=== PATIENT | female | born 1950 | race Caucasian/White ===

== ENCOUNTER 2016-04-08 19:56 | Inpatient (IN) | payer MEDICARE, MEDICAID ==
[~2016-04-08] VITALS: Ht 154.9 cm; Wt 80.0 kg
[~2016-04-08 19:56] MED LIST: AMLO-511 PO; ASPI-1061 PO; LEVO75 PO; LORA10TA7 PO; MIRT30 PO; OLAN2.5T3 PO; PARO20TA24 PO; TRAM50TA4 PO
[2016-04-08 22:58] VITALS: BP 118/83
[2016-04-08] MEDS: TraMADol HCL 50 MG TABLET PO PRN (22:58)
[2016-04-09] VITALS (8 sets, daily range): BP systolic 129–150; BP diastolic 64–87
[2016-04-09] MEDS: BENZOCAINE/MENTHOL LOZENGE [8 LOZENGES/PACKET] PO PRN ×3 (00:47→23:37)
[2016-04-09] MEDS: LORazepam 2 MG TABLET PO PRN (02:48)
[2016-04-09] MEDS: ZOLPIDEM TARTRATE 10 MG TABLET PO PRN (02:48)
[2016-04-09] MEDS ORDERED: INFLUENZA VIRUS VACCINE QVS 2016-17 (3YR+)/PF 60 MCG/0.5 ML SYRINGE IM ONE (04:30)
[2016-04-09] MEDS ORDERED: PNEUMOCOCCAL VACCINE POLYVALENT 0.5 ML VIAL [PPSV23] IM ONE (04:30)
[2016-04-09 06:56] LABS: GLUCOSE,POINT OF CARE 112 MG/DL (70-110)
[2016-04-09] MEDS: LEVOTHYROXINE SODIUM 75 MCG TABLET PO SCH (06:57)
[2016-04-09] MEDS: AMOXICILLIN TRIHYDRATE 500 MG CAPSULE PO SCH ×3 (08:00→16:44)
[2016-04-09] MEDS: MetFORMIN HCL 500 MG TABLET PO SCH (08:00)
[2016-04-09] MEDS: AmLODIPine BESYLATE 5 MG TABLET PO SCH (08:02)
[2016-04-09] MEDS ORDERED: PARoxetine HCL 20 MG TABLET PO SCH (09:00)
[2016-04-09] MEDS: TraMADol HCL 50 MG TABLET PO PRN ×2 (10:45→20:47)
[2016-04-09 16:56] LABS: GLUCOSE,POINT OF CARE 120 MG/DL (70-110)
[2016-04-09] MEDS: OLANZapine 10 MG TABLET PO SCH (20:43)
[2016-04-09] MEDS: PARoxetine HCL 20 MG TABLET PO SCH (20:43)
[2016-04-09] MEDS: MIRTAZAPINE 15 MG TABLET PO SCH (20:43)
[2016-04-09] MEDS ORDERED: MIRTAZAPINE 30 MG TABLET PO SCH (21:00)
[2016-04-09] MEDS ORDERED: OLANZapine 10 MG TABLET PO SCH (21:00)
[2016-04-10 02:00] VITALS: BP 145/79
[2016-04-10] MEDS ORDERED: LOPERAMIDE HCL 2 MG CAPSULE PO PRN (02:00)
[2016-04-10] MEDS: ONDANSETRON HCL 4 MG TABLET PO PRN (02:28)
[2016-04-10 05:26] LABS: GLUCOSE,POINT OF CARE 144 MG/DL (70-110)
[2016-04-10] MEDS: MetFORMIN HCL 500 MG TABLET PO SCH (06:50)
[2016-04-10] MEDS: LEVOTHYROXINE SODIUM 75 MCG TABLET PO SCH (06:50)
[2016-04-10 08:00] VITALS: BP 150/76
[2016-04-10] MEDS: LORazepam 2 MG TABLET PO PRN (08:53)
[2016-04-10] MEDS: AMOXICILLIN TRIHYDRATE 500 MG CAPSULE PO SCH ×3 (08:53→16:04)
[2016-04-10] MEDS: AmLODIPine BESYLATE 5 MG TABLET PO SCH (09:40)
[2016-04-10] MEDS: TraMADol HCL 50 MG TABLET PO PRN (12:57)
[2016-04-10 16:43] VITALS: BP 131/84
[2016-04-10 16:45] LABS: GLUCOSE,POINT OF CARE 130 MG/DL (70-110)
[2016-04-10] MEDS: OLANZapine 10 MG TABLET PO SCH (20:50)
[2016-04-10] MEDS: PARoxetine HCL 20 MG TABLET PO SCH (20:50)
[2016-04-10] MEDS: MIRTAZAPINE 15 MG TABLET PO SCH ×2 (20:50→20:53)
[2016-04-11 05:26] LABS: GLUCOSE,POINT OF CARE 118 MG/DL (70-110)
[2016-04-11] MEDS: LEVOTHYROXINE SODIUM 75 MCG TABLET PO SCH (06:43)
[2016-04-11] MEDS: MetFORMIN HCL 500 MG TABLET PO SCH (06:43)
[2016-04-11 08:10] VITALS: BP 157/93
[2016-04-11] MEDS: LORazepam 2 MG TABLET PO PRN ×2 (09:11→16:34)
[2016-04-11] MEDS: AMOXICILLIN TRIHYDRATE 500 MG CAPSULE PO SCH ×3 (09:12→16:34)
[2016-04-11] MEDS: AmLODIPine BESYLATE 5 MG TABLET PO SCH (09:12)
[2016-04-11] MEDS: LISINOPRIL 5 MG TABLET PO SCH (16:34)
[2016-04-11] MEDS: OLANZapine 7.5 MG TABLET PO SCH (20:52)
[2016-04-12 06:31] LABS: GLUCOSE,POINT OF CARE 94 MG/DL (70-110)
[2016-04-12 06:39] LABS: BASOPHILS # (AUTO) 0.03 K/uL (0.00-0.20); BASOPHILS % (AUTO) 0.3 % (0.0-2.0); EOSINOPHILS # (AUTO) 0.38 K/uL (0.00-0.70); EOSINOPHILS % (AUTO) 4.32 % (1.0-6.0); HEMATOCRIT 27.4 % (36-46); HEMOGLOBIN 9.2 g/dL (12.0-16.0); LYMPHOCYTES # (AUTO) 1.6 K/uL (1.0-4.8); LYMPHOCYTES % (AUTO) 18.3 % (22.0-44.0); MEAN CORPUSCULAR HGB CONC 33.7 G/dL (31.0-37.0); MEAN CORPUSCULAR VOLUME 89 fL (80-100); MONOCYTES # (AUTO) 0.8 K/uL (0.1-1.0); MONOCYTES % (AUTO) 8.8 % (2.0-9.0); NEUTROPHILS % (AUTO) 68.2 % (40.0-70.0); PLATELET COUNT (AUTO) 339 K/uL (150-450); RED BLOOD CELL COUNT(AUTO) 3.09 MIL/uL (4.00-5.20); RED CELL DISTRIBUTION WIDTH 14.9 % (11.5-14.5); WHITE BLOOD COUNT (AUTO) 8.8 K/uL (4.5-11.0)
[2016-04-12] MEDS: LEVOTHYROXINE SODIUM 75 MCG TABLET PO SCH (06:50)
[2016-04-12 07:37] LABS: ALANINE AMINOTRANSFERASE 69 U/L (12-78); ALBUMIN 2.7 g/dL (3.4-5.0); ANION GAP 7 mmol/L (8-16); ASPARTATE AMINOTRANSFERASE 39 U/L (15-37); BILIRUBIN,TOTAL 0.4 mg/dL (0.1-1.0); CALCIUM, TOTAL 8.1 mg/dL (8.8-10.5); CARBON DIOXIDE 27 mmol/L (22-29); CHLORIDE 110 mmol/L (98-107); CHOL/HDL RATIO 3.9 (3.9-5.7); CREATINE KINASE MB 1.8 ng/mL (0-5); CREATINE KINASE, TOTAL 157 U/L (26-192); CREATININE 0.67 mg/dL (0.60-1.30); GLOMERULAR FILTR. RATE CALC > 60 mL/min (>60); POTASSIUM 3.5 mmol/L (3.5-5.1); SODIUM SERUM 144 mmol/L (136-145); THYROID STIMULATING HORMONE 0.51 uIU/mL (0.36-3.74); TOTAL PROTEIN, SERUM 5.9 g/dL (6.4-8.2); UREA NITROGEN, BLOOD 8 mg/dL (7-18)
[2016-04-12 08:00] VITALS: BP 126/78
[2016-04-12] MEDS: AMOXICILLIN TRIHYDRATE 500 MG CAPSULE PO SCH ×3 (08:27→17:09)
[2016-04-12] MEDS: MetFORMIN HCL 500 MG TABLET PO SCH (08:27)
[2016-04-12] MEDS: AmLODIPine BESYLATE 5 MG TABLET PO SCH (08:27)
[2016-04-12] MEDS: LORazepam 2 MG TABLET PO PRN ×2 (08:28→15:09)
[2016-04-12] MEDS: OLANZapine 5 MG RAPDIS TABLET PO PRN (08:28)
[2016-04-12] MEDS: LISINOPRIL 5 MG TABLET PO SCH (08:28)
[2016-04-12 09:24] LABS: VITAMIN B12 LEVEL 598 pg/mL (211-911)
[2016-04-12] MEDS: TraMADol HCL 50 MG TABLET PO PRN (15:09)
[2016-04-12] MEDS: OLANZapine 7.5 MG TABLET PO SCH (20:37)
[2016-04-13] MEDS: ZOLPIDEM TARTRATE 10 MG TABLET PO PRN (01:22)
[2016-04-13] MEDS: LORazepam 2 MG TABLET PO PRN ×2 (01:22→23:25)
[2016-04-13 06:36] LABS: GLUCOSE,POINT OF CARE 108 MG/DL (70-110)
[2016-04-13] MEDS: LEVOTHYROXINE SODIUM 75 MCG TABLET PO SCH (06:53)
[2016-04-13] MEDS: AMOXICILLIN TRIHYDRATE 500 MG CAPSULE PO SCH ×2 (09:40→13:25)
[2016-04-13] MEDS: AmLODIPine BESYLATE 5 MG TABLET PO SCH (09:40)
[2016-04-13] MEDS: LISINOPRIL 5 MG TABLET PO SCH (09:40)
[2016-04-13] MEDS: MetFORMIN HCL 500 MG TABLET PO SCH (09:41)
[2016-04-13 11:20] LABS: HEPATITIS Bs ANTIGEN SCREEN P Negative (Negative); HEPATITIS C AB SCREEN <0.1 s/co ratio (0.0-0.9)
[2016-04-13] MEDS: TraMADol HCL 50 MG TABLET PO PRN (13:25)
[2016-04-13 13:29] VITALS: BP 144/80
[2016-04-13 16:00] VITALS: BP 138/74
[2016-04-13 17:31] LABS: GLUCOSE COMMENT 1 FASTING; GLUCOSE,POINT OF CARE 123 MG/DL (70-110)
[2016-04-13] MEDS: SULFAMETHOX/TRIMETH DS 800-160 MG/TABLET PO SCH (17:34)
[2016-04-13] MEDS: CEPHALEXIN MONOHYDRATE 500 MG CAPSULE PO SCH ×2 (17:35→20:50)
[2016-04-13] MEDS: OLANZapine 7.5 MG TABLET PO SCH (20:50)
[2016-04-14] MEDS: ZOLPIDEM TARTRATE 10 MG TABLET PO PRN (00:34)
[2016-04-14] MEDS: TraMADol HCL 50 MG TABLET PO PRN (00:34)
[2016-04-14 00:35] VITALS: BP 145/67
[2016-04-14 06:31] LABS: GLUCOSE,POINT OF CARE 125 MG/DL (70-110)
[2016-04-14] MEDS: MetFORMIN HCL 500 MG TABLET PO SCH (06:43)
[2016-04-14] MEDS: LEVOTHYROXINE SODIUM 75 MCG TABLET PO SCH (06:43)
[2016-04-14 08:25] VITALS: BP 130/73
[2016-04-14] MEDS: CEPHALEXIN MONOHYDRATE 500 MG CAPSULE PO SCH ×4 (08:30→20:31)
[2016-04-14] MEDS: AmLODIPine BESYLATE 5 MG TABLET PO SCH (08:30)
[2016-04-14] MEDS: SULFAMETHOX/TRIMETH DS 800-160 MG/TABLET PO SCH ×2 (08:30→16:14)
[2016-04-14] MEDS: LISINOPRIL 5 MG TABLET PO SCH (08:31)
[2016-04-14] MEDS: BENZOCAINE/MENTHOL LOZENGE [8 LOZENGES/PACKET] PO PRN (09:04)
[2016-04-14 16:12] LABS: GLUCOSE,POINT OF CARE 106 MG/DL (70-110)
[2016-04-14] MEDS: LORazepam 2 MG TABLET PO PRN ×2 (16:17→23:59)
[2016-04-14 16:22] VITALS: BP 146/64
[2016-04-14] MEDS: OLANZapine 7.5 MG TABLET PO SCH (20:32)
[2016-04-15] MEDS: ONDANSETRON HCL 4 MG TABLET PO PRN (00:48)
[2016-04-15 01:46] VITALS: BP 146/78
[2016-04-15 02:07] LABS: APPEARANCE,URINE CLEAR (CLEAR); GLUCOSE, URINE (UA) NEGATIVE (NEGATIVE); KETONES,URINE NEGATIVE (NEGATIVE); LEUKOCYTE ESTERASE ,URINE NEGATIVE (NEGATIVE); OCCULT BLOOD,URINE NEGATIVE (NEGATIVE); PH,URINE 5.5 (5.0-8.0); PROTEIN,URINE NEGATIVE (NEGATIVE)
[2016-04-15 02:09] LABS: ADD UA MICROSCOPIC NO
[2016-04-15] MEDS: TraMADol HCL 50 MG TABLET PO PRN ×2 (05:00→13:22)
[2016-04-15 05:01] VITALS: BP 135/79
[2016-04-15 06:36] LABS: GLUCOSE,POINT OF CARE 122 MG/DL (70-110)
[2016-04-15] MEDS: LEVOTHYROXINE SODIUM 75 MCG TABLET PO SCH (06:42)
[2016-04-15] MEDS: MetFORMIN HCL 500 MG TABLET PO SCH (06:42)
[2016-04-15 08:00] VITALS: BP 134/76
[2016-04-15] MEDS: CEPHALEXIN MONOHYDRATE 500 MG CAPSULE PO SCH ×4 (08:42→21:00)
[2016-04-15] MEDS: SULFAMETHOX/TRIMETH DS 800-160 MG/TABLET PO SCH ×2 (08:42→16:20)
[2016-04-15] MEDS: AmLODIPine BESYLATE 5 MG TABLET PO SCH (08:42)
[2016-04-15] MEDS: LISINOPRIL 5 MG TABLET PO SCH (08:43)
[2016-04-15] MEDS ORDERED: DEXTROSE 50%-WATER 25 GM/50 ML SYRINGE IVP PRN (15:30)
[2016-04-15 16:32] VITALS: BP 150/80
[2016-04-15 16:41] LABS: GLUCOSE,POINT OF CARE 102 MG/DL (70-110)
[2016-04-15] MEDS: OLANZapine 7.5 MG TABLET PO SCH (21:00)
[2016-04-15] MEDS: DIVALPROEX SODIUM 500 MG ER TABLET PO SCH (21:00)
[2016-04-15] MEDS: LORazepam 2 MG TABLET PO PRN (21:38)
[2016-04-16 00:38] VITALS: BP 140/82
[2016-04-16] MEDS: TraMADol HCL 50 MG TABLET PO PRN ×2 (00:38→08:36)
[2016-04-16 06:01] LABS: GLUCOSE,POINT OF CARE 103 MG/DL (70-110)
[2016-04-16] MEDS: MetFORMIN HCL 500 MG TABLET PO SCH (06:40)
[2016-04-16] MEDS: LEVOTHYROXINE SODIUM 75 MCG TABLET PO SCH (06:40)
[2016-04-16 08:00] VITALS: BP 138/74
[2016-04-16] MEDS: AmLODIPine BESYLATE 5 MG TABLET PO SCH (08:01)
[2016-04-16] MEDS: CEPHALEXIN MONOHYDRATE 500 MG CAPSULE PO SCH ×4 (08:01→20:37)
[2016-04-16] MEDS: SULFAMETHOX/TRIMETH DS 800-160 MG/TABLET PO SCH ×2 (08:01→16:26)
[2016-04-16] MEDS: LORazepam 2 MG TABLET PO PRN ×2 (08:01→20:38)
[2016-04-16] MEDS: LISINOPRIL 5 MG TABLET PO SCH (08:37)
[2016-04-16 16:43] VITALS: BP 139/75
[2016-04-16] MEDS: DIVALPROEX SODIUM 500 MG ER TABLET PO SCH (20:36)
[2016-04-16] MEDS: OLANZapine 7.5 MG TABLET PO SCH (20:37)
[2016-04-16 20:39] VITALS: BP 137/68
[2016-04-17] MEDS: LEVOTHYROXINE SODIUM 75 MCG TABLET PO SCH (06:41)
[2016-04-17] MEDS: MetFORMIN HCL 500 MG TABLET PO SCH (06:41)
[2016-04-17 06:56] LABS: GLUCOSE,POINT OF CARE 101 MG/DL (70-110)
[2016-04-17] MEDS: AmLODIPine BESYLATE 5 MG TABLET PO SCH (09:35)
[2016-04-17] MEDS: CEPHALEXIN MONOHYDRATE 500 MG CAPSULE PO SCH ×4 (09:35→21:36)
[2016-04-17] MEDS: SULFAMETHOX/TRIMETH DS 800-160 MG/TABLET PO SCH ×2 (09:36→17:17)
[2016-04-17] MEDS: LISINOPRIL 5 MG TABLET PO SCH (09:37)
[2016-04-17 16:30] VITALS: BP 114/63
[2016-04-17 17:26] LABS: GLUCOSE,POINT OF CARE 88 MG/DL (70-110)
[2016-04-17] MEDS: DIVALPROEX SODIUM 500 MG ER TABLET PO SCH (21:00)
[2016-04-17] MEDS: OLANZapine 7.5 MG TABLET PO SCH (21:36)
[2016-04-17] MEDS: LORazepam 2 MG TABLET PO PRN (21:45)
[2016-04-18] MEDS: TraMADol HCL 50 MG TABLET PO PRN (03:46)
[2016-04-18 05:31] LABS: GLUCOSE,POINT OF CARE 102 MG/DL (70-110)
[2016-04-18 06:26] LABS: BASOPHILS # (AUTO) 0.03 K/uL (0.00-0.20); BASOPHILS % (AUTO) 0.4 % (0.0-2.0); EOSINOPHILS # (AUTO) 0.27 K/uL (0.00-0.70); EOSINOPHILS % (AUTO) 3.79 % (1.0-6.0); HEMATOCRIT 32.2 % (36-46); HEMOGLOBIN 10.6 g/dL (12.0-16.0); LYMPHOCYTES # (AUTO) 1.6 K/uL (1.0-4.8); LYMPHOCYTES % (AUTO) 22.9 % (22.0-44.0); MEAN CORPUSCULAR HEMOGLOBIN 29.4 pg (26.0-34.0); MEAN CORPUSCULAR HGB CONC 32.8 G/dL (31.0-37.0); MEAN CORPUSCULAR VOLUME 90 fL (80-100); MONOCYTES # (AUTO) 0.7 K/uL (0.1-1.0); MONOCYTES % (AUTO) 10.2 % (2.0-9.0); NEUTROPHILS # (AUTO) 4.5 K/uL (1.8-7.7); NEUTROPHILS % (AUTO) 62.8 % (40.0-70.0); PLATELET COUNT (AUTO) 362 K/uL (150-450); RED BLOOD CELL COUNT(AUTO) 3.59 MIL/uL (4.00-5.20); WHITE BLOOD COUNT (AUTO) 7.1 K/uL (4.5-11.0)
[2016-04-18] MEDS: LEVOTHYROXINE SODIUM 75 MCG TABLET PO SCH (06:33)
[2016-04-18] MEDS: MetFORMIN HCL 500 MG TABLET PO SCH (06:33)
[2016-04-18 06:59] LABS: ANION GAP 10 mmol/L (8-16); CALCIUM, TOTAL 8.6 mg/dL (8.8-10.5); CARBON DIOXIDE 24 mmol/L (22-29); CHLORIDE 106 mmol/L (98-107); CREATINE KINASE, TOTAL 281 U/L (26-192); CREATININE 0.71 mg/dL (0.60-1.30); GLOMERULAR FILTR. RATE CALC > 60 mL/min (>60); POTASSIUM 4.1 mmol/L (3.5-5.1); SODIUM SERUM 140 mmol/L (136-145); UREA NITROGEN, BLOOD 6 mg/dL (7-18)
[2016-04-18] MEDS: CEPHALEXIN MONOHYDRATE 500 MG CAPSULE PO SCH ×2 (08:01→12:12)
[2016-04-18] MEDS: AmLODIPine BESYLATE 5 MG TABLET PO SCH (08:01)
[2016-04-18] MEDS: LISINOPRIL 5 MG TABLET PO SCH (08:01)
[2016-04-18] MEDS: SULFAMETHOX/TRIMETH DS 800-160 MG/TABLET PO SCH (08:01)
[2016-04-18 08:02] VITALS: BP 118/78
[2016-04-18 16:33] VITALS: BP 119/71
[2016-04-18 17:06] LABS: GLUCOSE,POINT OF CARE 110 MG/DL (70-110)
[2016-04-18] MEDS: LORazepam 2 MG TABLET PO PRN (22:25)
[2016-04-18] MEDS: OLANZapine 7.5 MG TABLET PO SCH (22:26)
[2016-04-19] MEDS: TraMADol HCL 50 MG TABLET PO PRN (00:38)
[2016-04-19 05:21] LABS: GLUCOSE,POINT OF CARE 97 MG/DL (70-110)
[2016-04-19 06:30] LABS: BASOPHILS % (AUTO) 0.2 % (0.0-2.0); EOSINOPHILS % (AUTO) 4.7 % (1.0-6.0); HEMATOCRIT 32.2 % (36-46); HEMOGLOBIN 10.5 g/dL (12.0-16.0); LYMPHOCYTES # (AUTO) 2.3 K/uL (1.0-4.8); LYMPHOCYTES % (AUTO) 30.4 % (22.0-44.0); MEAN CORPUSCULAR HEMOGLOBIN 29.2 pg (26.0-34.0); MEAN CORPUSCULAR HGB CONC 32.7 G/dL (31.0-37.0); MEAN CORPUSCULAR VOLUME 89 fL (80-100); MONOCYTES # (AUTO) 0.9 K/uL (0.1-1.0); MONOCYTES % (AUTO) 11.1 % (2.0-9.0); NEUTROPHILS # (AUTO) 4.1 K/uL (1.8-7.7); NEUTROPHILS % (AUTO) 53.6 % (40.0-70.0); PLATELET COUNT (AUTO) 355 K/uL (150-450); RED CELL DISTRIBUTION WIDTH 15.4 % (11.5-14.5); WHITE BLOOD COUNT (AUTO) 7.6 K/uL (4.5-11.0)
[2016-04-19] MEDS: LEVOTHYROXINE SODIUM 75 MCG TABLET PO SCH (06:35)
[2016-04-19] MEDS: MetFORMIN HCL 500 MG TABLET PO SCH (06:35)
[2016-04-19 06:49] LABS: ALANINE AMINOTRANSFERASE 57 U/L (12-78); ALBUMIN 3.2 g/dL (3.4-5.0); ANION GAP 8 mmol/L (8-16); ASPARTATE AMINOTRANSFERASE 43 U/L (15-37); BILIRUBIN,TOTAL 0.4 mg/dL (0.1-1.0); CALCIUM, TOTAL 8.9 mg/dL (8.8-10.5); CARBON DIOXIDE 25 mmol/L (22-29); CHLORIDE 106 mmol/L (98-107); CREATININE 0.71 mg/dL (0.60-1.30); GLOMERULAR FILTR. RATE CALC > 60 mL/min (>60); POTASSIUM 4.1 mmol/L (3.5-5.1); SODIUM SERUM 139 mmol/L (136-145); TOTAL PROTEIN, SERUM 6.8 g/dL (6.4-8.2); UREA NITROGEN, BLOOD 5 mg/dL (7-18)
[2016-04-19 07:38] LABS: B-TYPE NATRIURETIC PEPTIDE 26 pg/mL (0-100)
[2016-04-19] MEDS: AmLODIPine BESYLATE 5 MG TABLET PO SCH (09:09)
[2016-04-19] MEDS: LISINOPRIL 5 MG TABLET PO SCH (09:09)
[2016-04-19] MEDS: FUROSEMIDE 20 MG TABLET PO SCH (09:09)
[2016-04-19 10:19] VITALS: BP 119/74
[2016-04-19 16:00] VITALS: BP 133/72
[2016-04-19] MEDS: LORazepam 2 MG TABLET PO PRN (21:01)
[2016-04-19] MEDS: OLANZapine 7.5 MG TABLET PO SCH (21:45)
[2016-04-20 05:51] LABS: GLUCOSE,POINT OF CARE 104 MG/DL (70-110)
[2016-04-20] MEDS: MetFORMIN HCL 500 MG TABLET PO SCH (06:41)
[2016-04-20] MEDS: LEVOTHYROXINE SODIUM 75 MCG TABLET PO SCH (06:42)
[2016-04-20] MEDS: LISINOPRIL 5 MG TABLET PO SCH (08:50)
[2016-04-20] MEDS: FUROSEMIDE 20 MG TABLET PO SCH (08:51)
[2016-04-20] MEDS: BACITRACIN 28.4 GM OINTMENT TP SCH (08:52)
[2016-04-20] MEDS: AmLODIPine BESYLATE 5 MG TABLET PO SCH (08:52)
[2016-04-20 11:18] VITALS: BP 127/79
[2016-04-20] MEDS ORDERED: TUBERCULIN, PURIFIED PROTEIN DERIVATIVE 5 TU/0.1 ML SYG ID ONE (15:15)
[2016-04-20 16:30] VITALS: BP 117/70
[2016-04-20 17:30] LABS: GLUCOSE COMMENT 1 FASTING; GLUCOSE,POINT OF CARE 114 MG/DL (70-110)
[2016-04-20] MEDS: LORazepam 2 MG TABLET PO PRN (20:42)
[2016-04-20] MEDS: OLANZapine 7.5 MG TABLET PO SCH (21:40)
[2016-04-21] MEDS: ZOLPIDEM TARTRATE 10 MG TABLET PO PRN ×2 (00:57→23:47)
[2016-04-21 05:31] LABS: GLUCOSE,POINT OF CARE 89 MG/DL (70-110)
[2016-04-21] MEDS: LEVOTHYROXINE SODIUM 75 MCG TABLET PO SCH (07:03)
[2016-04-21] MEDS: MetFORMIN HCL 500 MG TABLET PO SCH (07:03)
[2016-04-21] MEDS: INSULIN ASPART 100 UNITS/ML SQ PRN (07:16)
[2016-04-21 08:00] VITALS: BP 137/75
[2016-04-21] MEDS: TraMADol HCL 50 MG TABLET PO PRN (08:01)
[2016-04-21] MEDS: AmLODIPine BESYLATE 5 MG TABLET PO SCH (08:01)
[2016-04-21] MEDS: LISINOPRIL 5 MG TABLET PO SCH (08:01)
[2016-04-21] MEDS: FUROSEMIDE 20 MG TABLET PO SCH (08:01)
[2016-04-21] MEDS: LORazepam 2 MG TABLET PO PRN (08:01)
[2016-04-21] MEDS: BACITRACIN 28.4 GM OINTMENT TP SCH (13:17)
[2016-04-21 16:30] VITALS: BP 128/70
[2016-04-21 18:21] LABS: GLUCOSE COMMENT 1 FASTING; GLUCOSE,POINT OF CARE 104 MG/DL (70-110)
[2016-04-21] MEDS: OLANZapine 7.5 MG TABLET PO SCH (21:29)
[2016-04-22] MEDS ORDERED: LIDOCAINE HCL/PF 2% 5 ML VIAL IM ONE (01:03)
[2016-04-22] MEDS ORDERED: PROPOFOL 1% 20 ML VIAL IVP ONE (01:03)
[2016-04-22 06:06] LABS: GLUCOSE,POINT OF CARE 102 MG/DL (70-110)
[2016-04-22] MEDS: MetFORMIN HCL 500 MG TABLET PO SCH (06:52)
[2016-04-22] MEDS: LEVOTHYROXINE SODIUM 75 MCG TABLET PO SCH (06:52)
[2016-04-22 08:07] VITALS: BP 143/82
[2016-04-22] MEDS ORDERED: RINGERS SOLUTION,LACTATED 1,000 ML IV ONE ×2 (09:00→09:05)
[2016-04-22 09:41] LABS: GLUCOSE,POINT OF CARE 156 MG/DL (70-110)
[2016-04-22] MEDS ORDERED: BACITRACIN 28.4 GM OINTMENT TP ONE (10:16)
[2016-04-22] MEDS ORDERED: TraMADol HCL 50 MG TABLET PO PRN (10:30)
[2016-04-22] MEDS ORDERED: MEPERIDINE-PF 25 MG/ML SYRINGE IVP PRN (10:45)
[2016-04-22] MEDS ORDERED: FentaNYL CITRATE-PF 100 MCG/2 ML VIAL IVP PRN (10:45)
[2016-04-22] MEDS ORDERED: HYDROmorphone 2 MG/ML SYRINGE IVP PRN (10:45)
[2016-04-22] MEDS: LISINOPRIL 5 MG TABLET PO SCH (12:45)
[2016-04-22] MEDS: AmLODIPine BESYLATE 5 MG TABLET PO SCH (12:46)
[2016-04-22] MEDS: FUROSEMIDE 20 MG TABLET PO SCH (12:46)
[2016-04-22] MEDS: BACITRACIN 28.4 GM OINTMENT TP SCH (12:46)
[2016-04-22 16:49] VITALS: BP 141/82
[2016-04-22 17:41] LABS: GLUCOSE COMMENT 1 FASTING; GLUCOSE,POINT OF CARE 110 MG/DL (70-110)
[2016-04-22] MEDS: OXYGEN THERAPY IH SCH (20:00)
[2016-04-22] MEDS: LORazepam 2 MG TABLET PO PRN (20:31)
[2016-04-22] MEDS: OLANZapine 7.5 MG TABLET PO SCH (21:24)
[2016-04-22] MEDS ORDERED: FentaNYL CITRATE-PF 100 MCG/2 ML VIAL IVP ONE (23:45)
[2016-04-22] MEDS ORDERED: MIDAZOLAM HCL 2 MG/2 ML VIAL IVP ONE (23:45)
[2016-04-23 00:02] VITALS: BP 128/73
[2016-04-23 05:31] LABS: GLUCOSE,POINT OF CARE 111 MG/DL (70-110)
[2016-04-23] MEDS: LEVOTHYROXINE SODIUM 75 MCG TABLET PO SCH (06:33)
[2016-04-23] MEDS: MetFORMIN HCL 500 MG TABLET PO SCH (06:33)
[2016-04-23] MEDS ORDERED: LEVOTHYROXINE SODIUM 75 MCG TABLET PO SCH (07:00)
[2016-04-23] MEDS: ASPIRIN 81 MG EC TABLET PO SCH (07:47)
[2016-04-23] MEDS: OLANZapine 5 MG RAPDIS TABLET PO PRN (07:47)
[2016-04-23] MEDS: LORATADINE 10 MG TABLET PO SCH (07:47)
[2016-04-23] MEDS: LORazepam 2 MG TABLET PO PRN ×2 (07:47→21:35)
[2016-04-23] MEDS: LISINOPRIL 5 MG TABLET PO SCH (07:47)
[2016-04-23] MEDS: FUROSEMIDE 20 MG TABLET PO SCH (07:47)
[2016-04-23] MEDS: AmLODIPine BESYLATE 5 MG TABLET PO SCH (07:47)
[2016-04-23] MEDS: BACITRACIN 28.4 GM OINTMENT TP SCH (07:48)
[2016-04-23] MEDS: OXYGEN THERAPY IH SCH ×2 (08:00→20:00)
[2016-04-23] MEDS ORDERED: AmLODIPine BESYLATE 5 MG TABLET PO SCH (09:00)
[2016-04-23 09:06] VITALS: BP 140/80
[2016-04-23 16:00] VITALS: BP 125/82
[2016-04-23 16:52] LABS: GLUCOSE,POINT OF CARE 137 MG/DL (70-110)
[2016-04-23] MEDS: OLANZapine 7.5 MG TABLET PO SCH (21:35)
[2016-04-24 06:13] LABS: GLUCOSE,POINT OF CARE 109 MG/DL (70-110)
[2016-04-24] MEDS: MetFORMIN HCL 500 MG TABLET PO SCH (06:31)
[2016-04-24] MEDS: LEVOTHYROXINE SODIUM 75 MCG TABLET PO SCH (06:31)
[2016-04-24] MEDS: OXYGEN THERAPY IH SCH (08:00)
[2016-04-24] MEDS: FUROSEMIDE 20 MG TABLET PO SCH (09:54)
[2016-04-24] MEDS: LISINOPRIL 5 MG TABLET PO SCH (09:54)
[2016-04-24] MEDS: LORATADINE 10 MG TABLET PO SCH (09:54)
[2016-04-24] MEDS: AmLODIPine BESYLATE 5 MG TABLET PO SCH (09:54)
[2016-04-24] MEDS: ASPIRIN 81 MG EC TABLET PO SCH (09:54)
[2016-04-24] MEDS: BACITRACIN 28.4 GM OINTMENT TP SCH (09:55)
[2016-04-24 16:29] VITALS: BP 127/82
[2016-04-24 17:26] LABS: GLUCOSE,POINT OF CARE 123 MG/DL (70-110)
[2016-04-24] MEDS: LORazepam 2 MG TABLET PO PRN (19:02)
[2016-04-24] MEDS: OLANZapine 7.5 MG TABLET PO SCH (20:37)
[2016-04-25] MEDS: TraMADol HCL 50 MG TABLET PO PRN ×3 (00:01→23:44)
[2016-04-25 00:02] VITALS: BP 130/72
[2016-04-25 05:04] VITALS: BP 133/71
[2016-04-25 05:57] LABS: GLUCOSE,POINT OF CARE 96 MG/DL (70-110)
[2016-04-25] MEDS: MetFORMIN HCL 500 MG TABLET PO SCH (06:44)
[2016-04-25] MEDS: LEVOTHYROXINE SODIUM 75 MCG TABLET PO SCH (06:44)
[2016-04-25] MEDS: OXYGEN THERAPY IH SCH ×2 (08:00→20:00)
[2016-04-25] MEDS: AmLODIPine BESYLATE 5 MG TABLET PO SCH (08:09)
[2016-04-25] MEDS: FUROSEMIDE 20 MG TABLET PO SCH (08:09)
[2016-04-25] MEDS: ASPIRIN 81 MG EC TABLET PO SCH (08:09)
[2016-04-25] MEDS: LORATADINE 10 MG TABLET PO SCH (08:10)
[2016-04-25] MEDS: LISINOPRIL 5 MG TABLET PO SCH (08:10)
[2016-04-25 08:13] VITALS: BP 128/78
[2016-04-25] MEDS: LORazepam 2 MG TABLET PO PRN (08:42)
[2016-04-25 16:52] VITALS: BP 127/76
[2016-04-25 18:01] LABS: GLUCOSE COMMENT 1 FASTING; GLUCOSE,POINT OF CARE 111 MG/DL (70-110)
[2016-04-25] MEDS: OLANZapine 7.5 MG TABLET PO SCH (20:42)
[2016-04-25 23:40] VITALS: BP 132/72
[2016-04-25] MEDS: ZOLPIDEM TARTRATE 10 MG TABLET PO PRN (23:44)
[2016-04-26 06:31] LABS: GLUCOSE,POINT OF CARE 106 MG/DL (70-110)
[2016-04-26] MEDS: LEVOTHYROXINE SODIUM 75 MCG TABLET PO SCH (07:00)
[2016-04-26] MEDS: MetFORMIN HCL 500 MG TABLET PO SCH (07:00)
[2016-04-26] MEDS: INSULIN ASPART 100 UNITS/ML SQ PRN (07:01)
[2016-04-26] MEDS: FUROSEMIDE 20 MG TABLET PO SCH (07:54)
[2016-04-26] MEDS: OXYGEN THERAPY IH SCH ×2 (07:54→20:00)
[2016-04-26] MEDS: LORATADINE 10 MG TABLET PO SCH (07:54)
[2016-04-26] MEDS: ASPIRIN 81 MG EC TABLET PO SCH (07:54)
[2016-04-26] MEDS: LISINOPRIL 5 MG TABLET PO SCH (07:54)
[2016-04-26] MEDS: AmLODIPine BESYLATE 5 MG TABLET PO SCH (07:54)
[2016-04-26 08:10] VITALS: BP 134/76
[2016-04-26 16:30] VITALS: BP 137/68
[2016-04-26] MEDS: LORazepam 2 MG TABLET PO PRN ×2 (17:12→22:40)
[2016-04-26] MEDS: OLANZapine 7.5 MG TABLET PO SCH (21:45)
[2016-04-26 21:54] VITALS: BP 126/67
[2016-04-26] MEDS: TraMADol HCL 50 MG TABLET PO PRN (21:56)
[2016-04-27 00:24] VITALS: BP 114/57
[2016-04-27 05:31] LABS: GLUCOSE,POINT OF CARE 117 MG/DL (70-110)
[2016-04-27] MEDS: MetFORMIN HCL 500 MG TABLET PO SCH (06:34)
[2016-04-27] MEDS: LEVOTHYROXINE SODIUM 75 MCG TABLET PO SCH (06:34)
[2016-04-27] MEDS: OXYGEN THERAPY IH SCH ×2 (08:00→20:00)
[2016-04-27] MEDS: LORATADINE 10 MG TABLET PO SCH (09:00)
[2016-04-27] MEDS: AmLODIPine BESYLATE 5 MG TABLET PO SCH (09:39)
[2016-04-27] MEDS: FUROSEMIDE 20 MG TABLET PO SCH (09:39)
[2016-04-27] MEDS: LISINOPRIL 5 MG TABLET PO SCH (09:39)
[2016-04-27] MEDS: ASPIRIN 81 MG EC TABLET PO SCH (09:58)
[2016-04-27 10:52] VITALS: BP 126/80
[2016-04-27] MEDS: OLANZapine 7.5 MG TABLET PO SCH (20:22)
[2016-04-27] MEDS: LORazepam 2 MG TABLET PO PRN (20:22)
[2016-04-27] MEDS ORDERED: OLAN7.5T2 PO (21:22)
[2016-04-27] MEDS ORDERED: FURO20 PO (21:24)
[2016-04-27] MEDS ORDERED: LISI-660 PO (21:24)
[2016-04-27] MEDS ORDERED: METF500T4 PO (21:25)
[2016-04-27 21:35] VITALS: BP 124/79
[2016-04-27 21:46] LABS: GLUCOSE,POINT OF CARE 121 MG/DL (70-110)
[2016-04-27] MEDS: TraMADol HCL 50 MG TABLET PO PRN (22:03)
[2016-04-27 22:04] VITALS: BP 134/78
[2016-04-28 00:50] VITALS: BP 126/66
[2016-04-28 05:26] LABS: GLUCOSE,POINT OF CARE 98 MG/DL (70-110)
[2016-04-28] MEDS: MetFORMIN HCL 500 MG TABLET PO SCH (06:36)
[2016-04-28] MEDS: LEVOTHYROXINE SODIUM 75 MCG TABLET PO SCH (06:36)
[2016-04-28] MEDS: AmLODIPine BESYLATE 5 MG TABLET PO SCH (07:46)
[2016-04-28] MEDS: FUROSEMIDE 20 MG TABLET PO SCH (07:46)
[2016-04-28] MEDS: ASPIRIN 81 MG EC TABLET PO SCH (07:46)
[2016-04-28] MEDS: LORATADINE 10 MG TABLET PO SCH (07:46)
[2016-04-28] MEDS: LISINOPRIL 5 MG TABLET PO SCH (07:47)
[2016-04-28 08:04] VITALS: BP 126/73
== END 2016-04-28 09:50 | disposition home or self-care (01) | DRG 885 ==
LOC: 3EC 21:15 → 3EI 04-09 18:40 → 3EC 04-11 21:30 → 3EI 04-26 08:41
PROC: 8E09XY8 Suture Removal from Head and Neck Region (ICD-10-PCS; principal; 2016-04-22 10:10)
DX: F31.5 Bipolar disorder, current episode depressed, severe, with psychotic features (principal); L03.221 Cellulitis of neck; F17.210 Nicotine dependence, cigarettes, uncomplicated; I10 Essential (primary) hypertension; E11.9 Type 2 diabetes mellitus without complications; E03.9 Hypothyroidism, unspecified; H18.419 Arcus senilis, unspecified eye; D64.9 Anemia, unspecified; J30.9 Allergic rhinitis, unspecified; E55.9 Vitamin D deficiency, unspecified; E87.8 Other disorders of electrolyte and fluid balance, not elsewhere classified; K29.70 Gastritis, unspecified, without bleeding; Z85.43 Personal history of malignant neoplasm of ovary; Z90.49 Acquired absence of other specified parts of digestive tract; Z98.890 Other specified postprocedural states; Z90.710 Acquired absence of both cervix and uterus; Z80.3 Family history of malignant neoplasm of breast; Z88.8 Allergy status to other drugs, medicaments and biological substances; Z79.82 Long term (current) use of aspirin; Z91.19 Patient's noncompliance with other medical treatment and regimen; Z91.5 Personal history of self-harm; Z28.21 Immunization not carried out because of patient refusal; S11.91XD Laceration without foreign body of unspecified part of neck, subsequent encounter; X58.XXXD Exposure to other specified factors, subsequent encounter; Y92.89 Other specified places as the place of occurrence of the external cause; Y99.8 Other external cause status; Z48.02 Encounter for removal of sutures
CPT/HCPCS: 71020; 80074; 80307; 82306; 82607; 82746; 82962; 83036; 83735; 84439; 84443; 86592; 87045; 87081; 88300; 89055; 93005; G0238; J2250; J2704; J3010; J3490; J7120; Q0162